=== PATIENT | female | born 1960 | race Caucasian/White ===

== ENCOUNTER 2024-11-02 16:19 | Emergency (ER) | payer MEDICARE | END 2024-11-02 18:15 | disposition home or self-care (01) | LOC: JD.ED 16:19 | DX: S82.142A Displaced bicondylar fracture of left tibia, initial encounter for closed fracture (principal); Z88.0 Allergy status to penicillin; W18.40XA Slipping, tripping and stumbling without falling, unspecified, initial encounter; Y93.89 Activity, other specified | CPT/HCPCS: 73562-26-LT; 73562-LT; 99283 ==